=== PATIENT | male | born 1960 | race African-American/Black ===

== ENCOUNTER 2023-07-30 19:45 | Emergency (ER) | payer BC ==
[~2023-07-30] VITALS: Ht 180.3 cm; Wt 136.1 kg
[2023-07-30 20:41] VITALS: BP 140/100; TEMP 98; O2SAT 97
== END 2023-07-30 20:42 | disposition home or self-care (01) ==
LOC: ER 20:02
DX: R53.1 Weakness (principal); E10.9 Type 1 diabetes mellitus without complications
CPT/HCPCS: A4606; A4663